=== PATIENT | female | born 1955 | race Caucasian/White ===

== ENCOUNTER → 2016-11-26 | Outpatient (CLI) | payer OTHER ==
[~2016-11-26] MED LIST: IOPAMIDOL (ISOVUE 370) 100 ML BTL IV ONE
--- NOTE | 2016-11-26 14:13 | CT ---
CT Angiography of the Head Clinical Indications: Dizziness. R29.818 Neurological changes strongly suggesting intracerebral aneur ysm. Technique: During automated power injection of 85 mL of Isovue-370, thinly collimated spiral (volume tric) multidetector helical imaging was performed through the head. Independent three-dimensional [employer] workstation was used for additional manipulations of images by the radiologist. Dose reduction techniques were utilized. Findings: The tangirnaq of [place] and its branches are normal. No evidence of aneurysm or vascular mal formation. No occlusions are found. Maxillary sinus disease is present in the left maxillary sinus. There is some ethmoid sinus thickening on the left as well. Impression: Normal CTA. Mild sinus disease. Critical results relayed by Dr. Vargas to Dr. Hanley November 26, 2016, 1400 hours.
--- NOTE | 2016-11-26 14:35 | CT ---
CT Head Without Contrast Clinical Indication: Neurologic changes. Evaluate for stroke or aneurysm. Technique: Helical axial scanning through the head was performed without contrast. Routine reconstruc tions were performed in the coronal and sagittal planes. Dose reduction technique was performed. Findings: There is some maxillary sinus disease on the left and some ethmoid sinus disease on the lef t. Brain volume is normal. Ventricles are normal in size. No evidence of intracranial hemorrhage. No evidence of acute stroke. Strickland-white differentiation is normal. Impression: Mild sinus disease. No evidence of intracranial hemorrhage, aneurysm, or stroke. Critical results relayed by Dr. Vargas to Dr. Hanley on November 26, 2016 at 1400 hours. e:[email or web address]/[email or web address]
== END ==
LOC: FIMAGING 11:51
PROVIDERS: ATTEND Family Medicine
DX: J32.9 Chronic sinusitis, unspecified (principal); R42 Dizziness and giddiness; G44.82 Headache associated with sexual activity; G44.85 Primary stabbing headache
CPT/HCPCS: Q9967

== ENCOUNTER → 2017-11-25 | Outpatient (CLI) | payer OTHER | LOC: BMCIMAGING 07:59 | PROVIDERS: ATTEND Internal Medicine | DX: R10.11 Right upper quadrant pain (principal); R19.01 Right upper quadrant abdominal swelling, mass and lump; K76.0 Fatty (change of) liver, not elsewhere classified ==

== ENCOUNTER → 2018-12-16 | Outpatient (CLI) | payer OTHER | LOC: BMCIMAGING 10:04 | PROVIDERS: ATTEND Internal Medicine | DX: S22.050A Wedge compression fracture of T5-T6 vertebra, initial encounter for closed fracture (principal); S22.080A Wedge compression fracture of T11-T12 vertebra, initial encounter for closed fracture; R07.9 Chest pain, unspecified; J84.10 Pulmonary fibrosis, unspecified ==

== ENCOUNTER 2019-04-11 12:58 | Emergency (ER) | payer OTHER ==
--- NOTE | 2019-04-11 13:16 | EDPHY ---
H & P Stated Complaint: ABD pn 2D [employer], H/A yest, mostly resolved. Denies N/V/D, "don' t feel good" - Personal History Current Tetanus/Diphtheria Vaccine: Unsure - Medical/Surgical History Hx Asthma: No Hx Chronic Respiratory Disease: No Hx Diabetes: No Hx Cardiac Disease: No Hx Renal Disease: No Hx Cirrhosis: No Hx Alcoholism: No Hx HIV/AIDS: No Hx Splenectomy or Spleen Trauma: No Other PMH: SINUS INF/ HAS HAD VERTIGO IN PAST/ RHEUMATIC FEVER - Social History Smoking Status: Never smoked Time Seen by Provider: 04/11/19 13:16 Constitutional: Initial Vital Signs Temperature (C) 36.4 C 04/11/19 13:03 Heart Rate 63 04/11/19 13:03 Respiratory Rate 18 04/11/19 13:03 Blood Pressure 127/68 H 04/11/19 13:03 O2 Sat (%) 97 04/11/19 13:03 O2 Delivery Mode Room Air Allergies/Adverse Reactions: Sulfa (Sulfonamide Antibiotics) Allergy (Verified 04/11/19 13:03) Home Medications: Medication Instructions Recorded Augmentin 875 MG TAB (*) 09/08/16 Diazepam [DIAZEPAM] 5 mg PO Q8HRS #7 ml 09/08/16 Meclizine HCl [Meclizine HCl 12.5 12.5 mg PO BID #10 tab 09/08/16 mg (*)] Hydrocodone/APAP 5/325 [[place] 1 - 2 each PO Q6 PRN #20 tab 04/11/19 5/325] Ondansetron Odt [Zofran Odt] 4 mg PO Q4PRN PRN #20 tab 04/11/19 Medical Decision Making - Diagnostics Imaging: Discussed imaging studies w/ call taker Radiologist, I viewed and interpreted images myself - Diagnostics Imaging Results: Imaging Impressions Abdomen Ultrasound 04/11/19 13:34 Impression: 1. No acute findings. 2. Hepatic steatosis. ED Course/Re-evaluation: CHIEF COMPLAINT: Abdominal pain HISTORY OF PRESENT ILLNESS: The patient is a 63 y/o female with a history of a fatty liver and elevated LFT' s complaining of waxing and waning abdominal pain since last night. The patient reports that she had an "abdominal attack" that lasted for one hour. Today the symptoms returned again. The pain is primarily located under her ribs and radiates to her right upper abdomen to her back. She also feels shaky and sweaty. She reports she has had these symptoms twice in the past. She denies history of abdominal surgery or gallstones. No fever, headache, body aches, lightheadedness, chest pain, heart palpitations, shortness of breath, cough, urinary or bowel complaints, numbness, paresthesias. REVIEW OF SYSTEMS: A comprehensive 10 system review of systems is otherwise negative aside from elements mentioned in the history of present illness and medical decision making. PHYSICAL EXAM: HR, BP, O2 Sat, RR. Temp noted General Appearance: Alert, well hydrated, appropriate, and non-toxic appearing. Head: Atraumatic without scalp tenderness or obvious injury Eyes: Pupils equal, round, reactive to light and accommodation, EOMI, no trauma , no injection. Ears: Clear bilaterally, no perforation, normal landmarks Nose: Atraumatic, no rhinorrhea, clear. Throat: There is no erythema or exudates, no lesions, normal tonsils, mucus membranes moist. Neck: Supple, 2+ carotid upstroke, nontender, no lymphadenopathy. Respiratory: No retractions, no distress, no wheezes, and no accessory muscle use. Lungs are clear to auscultation bilaterally. Cardiovascular: Regular rate and rhythm, no murmurs, rubs, or gallops. Bilateral carotid, radial, dorsalis pedis, and posterior tibial pulses intact. Good capillary refill all extremities. Gastrointestinal: Positive Rosnethal's sign. Abdomen is soft, non-distended, no masses, no rebound, no guarding, no peritoneal signs. Musculoskeletal: Normal active ROM of all extremities, atraumatic. Neurological: Alert, appropriate, and interactive. The patient has normal DTRs and non-focal cranial nerves, motor, sensory, and cerebellar exam. Skin: No rashes, good turgor, no nodules on palpation. Past medical history: Fatty liver, vertigo, sinus infections Past surgical history: Denies Family history: Denies Social history: Lives in [place], single, self-employed DIAGNOSTICS/PROCEDURES/CRITICAL CARE TIME: Abdominal US: No acute findings Abdominopelvic CT: Pending at time of shift change. DIFFERENTIAL DIAGNOSIS: The differential diagnosis for the patient's abdominal pain included but was not limited to ovarian cyst, pelvic inflammatory disease, ovarian torsion, urinary tract infection, ectopic , cholecystitis, and appendicitis. MEDICAL DECISION MAKING: The patient is a 63 y/o female with a history of a fatty liver and elevated LFT' s presenting with waxing and waning abdominal pain since last night. The patient reports that she had an "abdominal attack" that lasted for one hour. Today the symptoms returned again. The pain is primarily located under her ribs and radiates to her right upper abdomen to her back. On exam she has positive Rosenthal's sign. Labs and abdominal US ordered; 1L IV NS, 30mg IV Toradol, and 4mg IV Zofran administered. 1415: I spoke with Dr. Trejo, radiologist, regarding this patient. There are no acute findings; abdominopelvic CT ordered. 1450:Patient care turned over to Dr. Mathew at shift change pending abdominopelvic CT. (Silvino Browne) I assumed care of the patient at 3:[address] p[address] The patient's CT scan demonstrates evidence of enteritis but no specific evidence of perforation, obstruction or appendicitis. I reassessed the patient and find her abdominal examination to be reassuring. At this point time I do feel the patient can be discharged home with plans for conservative treatment. I have written the patient a prescription for Zofran and [place]. She will be discharged home with customary abdominal pain aftercare instructions. (Shine Mathew) Differential Diagnosis: Differential diagnosis considered includes cholecystitis, hepatitis, perforation , obstruction, appendicitis, gastroenteritis (Shine Mathew) Other Provider: I assumed care of the patient at 3pm. (Shine Mathew) - Data Points Laboratory Results: Laboratory Results 04/11/19 13:45 04/11/19 13:45 04/11/19 04/11/19 04/11/19 14:37 13:52 13:45 WBC RBC Hgb POC Hgb 12.6 gm/dL gm/dL (12.6-16.3) Hct POC Hct 37 % L % (38-47) MCV MCH MCHC RDW Plt Count MPV Neut % (Auto) Lymph % (Auto) [place] % (Auto) Eos % (Auto) Baso % (Auto) Nucleat RBC Rel Count Absolute Neuts (auto) Absolute Lymphs (auto) Absolute Monos (auto) Absolute Eos (auto) Absolute Basos (auto) Absolute Nucleated RBC Immature Gran % Immature Gran # POC Sodium 141 mEq/L mEq/L (135-145) Sodium 138 mEq/L mEq/L (135-145) POC Potassium 3.6 mEq/L mEq/L (3.3-5.0) Potassium 3.8 mEq/L mEq/L (3.5-5.2) POC Chloride 104 mEq/L mEq/L (97-110) Chloride 104 mEq/L mEq/L (97-110) Carbon Dioxide 25 mEq/l mEq/l (22-31) POC Total CO2 26 mEq/L mEq/L (22-31) Anion Gap 9 mEq/L mEq/L (6-14) POC BUN 17 mg/dL mg/dL (7-23) BUN 18 mg/dL mg/dL (7-23) Creatinine 0.8 mg/dL mg/dL (0.6-1.0) POC Creatinine 0.8 mg/dL mg/dL (0.6-1.0) Estimated GFR > 60 Glucose 97 mg/dL mg/dL (70-100) POC Glucose 101 mg/dL H mg/dL (70-100) Calcium 9.4 mg/dL mg/dL (8.5-10.4) Total Bilirubin 0.6 mg/dL mg/dL (0.1-1.4) Conjugated Bilirubin 0.1 mg/dL mg/dL (0.0-0.5) Unconjugated Bilirubin 0.5 mg/dL mg/dL (0.0-1.1) AST 25 IU/L IU/L (14-46) ALT 45 IU/L IU/L (9-52) Alkaline Phosphatase 44 IU/L IU/L (38-126) Total Protein 6.8 g/dL g/dL (6.3-8.2) Albumin 4.4 g/dL g/dL (3.5-5.0) Lipase 74 IU/L IU/L (23-300) Urine Color YELLOW Urine Appearance CLEAR Urine pH 7.0 (5.0-7.5) Ur Specific [place] 1.010 (1.002-1.030) Urine Protein NEGATIVE (NEGATIVE) Urine Ketones NEGATIVE (NEGATIVE) Urine Blood NEGATIVE (NEGATIVE) Urine Nitrate NEGATIVE (NEGATIVE) Urine Bilirubin NEGATIVE (NEGATIVE) Urine Urobilinogen NEGATIVE EU EU (0.2-1.0) Ur Leukocyte Esterase 1+ H (NEGATIVE) Urine RBC 3-5 /hpf H /hpf (0-3) Urine WBC 1-3 /hpf /hpf (0-3) Ur Epithelial Cells TRACE /lpf /lpf (NONE-1+) Urine Mucus TRACE /lpf /lpf (NONE-1+) Urine Glucose NEGATIVE (NEGATIVE) 04/11/19 13:45 WBC 5.89 10^3/uL 10^3/uL (3.80-9.50) RBC 4.21 10^6/uL 10^6/uL (4.18-5.33) Hgb 13.2 g/dL g/dL (12.6-16.3) POC Hgb Hct 38.0 % % (38.0-47.0) POC Hct MCV 90.3 fL fL (81.5-99.8) MCH 31.4 pg pg (27.9-34.1) MCHC 34.7 g/dL g/dL (32.4-36.7) RDW 11.9 % % (11.5-15.2) Plt Count 262 10^3/uL 10^3/uL (150-400) MPV 10.1 fL fL (8.7-11.7) Neut % (Auto) 51.9 % % (39.3-74.2) Lymph % (Auto) 34.0 % % (15.0-45.0) Marion % (Auto) 10.0 % % (4.5-13.0) Eos % (Auto) 3.2 % % (0.6-7.6) Baso % (Auto) 0.7 % % (0.3-1.7) Nucleat RBC Rel Count 0.0 % % (0.0-0.2) Absolute Neuts (auto) 3.06 10^3/uL 10^3/uL (1.70-6.50) Absolute Lymphs (auto) 2.00 10^3/uL 10^3/uL (1.00-3.00) Absolute Monos (auto) 0.59 10^3/uL 10^3/uL (0.30-0.80) Absolute Eos (auto) 0.19 10^3/uL 10^3/uL (0.03-0.40) Absolute Basos (auto) 0.04 10^3/uL 10^3/uL (0.02-0.10) Absolute Nucleated RBC 0.00 10^3/uL 10^3/uL (0-0.01) Immature Gran % 0.2 % % (0.0-1.1) Immature Gran # 0.01 10^3/uL 10^3/uL (0.00-0.10) POC Sodium Sodium POC Potassium Potassium POC Chloride Chloride Carbon Dioxide POC Total CO2 Anion Gap POC BUN BUN Creatinine POC Creatinine Estimated GFR Glucose POC Glucose Calcium Total Bilirubin Conjugated Bilirubin Unconjugated Bilirubin AST ALT Alkaline Phosphatase Total Protein Albumin Lipase Urine Color Urine Appearance Urine pH Ur Specific [place] Urine Protein Urine Ketones Urine Blood Urine Nitrate Urine Bilirubin Urine Urobilinogen Ur Leukocyte Esterase Urine RBC Urine WBC Ur Epithelial Cells Urine Mucus Urine Glucose Medications Given: Discontinued Medications Sodium Chloride (Ns) 1,000 mls @ 0 mls/hr IV EDNOW ONE; Wide Open PRN Reason: Protocol Stop: 04/11/19 13:34 Last Admin: 04/11/19 13:46 Dose: 1,000 mls Ketorolac Tromethamine (Toradol) 30 mg IVP EDNOW ONE Stop: 04/11/19 13:34 Last Admin: 04/11/19 13:53 Dose: 30 mg Ondansetron HCl (Zofran) 4 mg IVP EDNOW ONE Stop: 04/11/19 13:34 Last Admin: 04/11/19 14:01 Dose: Not Given Point of Care Test Results: Chemistry 04/11/19 13:52 POC Sodium 141 mEq/L mEq/L (135-145) POC Potassium 3.6 mEq/L mEq/L (3.3-5.0) POC Chloride 104 mEq/L mEq/L (97-110) POC Total CO2 26 mEq/L mEq/L (22-31) POC BUN 17 mg/dL mg/dL (7-23) POC Creatinine 0.8 mg/dL mg/dL (0.6-1.0) POC Glucose 101 mg/dL H mg/dL (70-100) ISTAT H&H 04/11/19 13:52 POC Hgb 12.6 gm/dL gm/dL (12.6-16.3) POC Hct 37 % L % (38-47) Departure - Departure Disposition: Home, Routine, Self-Care Clinical Impression: Abdominal pain Qualifiers: Abdominal location: right upper quadrant Qualified Code(s): R10.11 - Right upper quadrant pain Condition: Good Instructions: Acute Abdominal Pain (ED) Additional Instructions: 1. Follow-up with your primary doctor within 72 hours. 2. Return to the Emergency Department for fever, chest pain, shortness of breath , increasing pain or other worsening of condition. 3. Zofran as needed for nausea. 4. [place] as needed for pain. Sometimes we are unable to diagnose an obvious cause of abdominal pain in the Emergency Department. Based upon our evaluation today, we see no obvious explanation for your pain. Because more serious conditions can be difficult to diagnose early in the course of their presentation, we ask that you return to the Emergency Department in 8-12 hours for a recheck if you are still having pain. This is necessary to exclude the development of a more serious condition such as appendicitis or other intra-abdominal emergency. In the event your pain markedly increases before that time or you develop intractable vomiting or fever return to the Emergency Department immediately. Referrals: Adam Kaplan MD [Primary Care Provider] - As per Instructions Prescriptions: Hydrocodone/APAP 5/325 [[place] 5/325] 1 - 2 each PO Q6 PRN #20 tab PRN Reason: for pain Ondansetron Odt [Zofran Odt] 4 mg PO Q4PRN PRN #20 tab PRN Reason: For Nausea Report Scribed for: Silvino Browne Report Scribed by: Leslie Johnson Date of Report: 04/11/19 Time of Report: 13:47
[2019-04-11] MEDS ORDERED: KETOROLAC 30 MG/1 ML SDV IVP ONE (13:33)
[2019-04-11] MEDS ORDERED: ONDANSETRON 4 MG/2 ML VIAL IVP ONE (13:33)
[2019-04-11] MEDS ORDERED: NS 1,000 ML IV ONE (13:33)
[2019-04-11 13:57] LABS: PLATELET COUNT 262 10^3/uL (150-400)
[2019-04-11] MEDS ORDERED: IOPAMIDOL (ISOVUE-300) 100 ML BTL ONE (14:23)
[2019-04-11 15:22] VITALS: BP 130/48
== END 2019-04-11 15:21 | disposition home or self-care (01) ==
DX: R10.11 Right upper quadrant pain (principal); K76.0 Fatty (change of) liver, not elsewhere classified; R79.89 Other specified abnormal findings of blood chemistry; E86.9 Volume depletion, unspecified
CPT/HCPCS: 82435-PO; 82565-PO; 82947-PO; 84132-PO; 84295-PO; 84520-PO; 85014-ER; 96374; J1885; Q9967